=== PATIENT | male | born 2000 | race Two or more races ===

== ENCOUNTER 2024-05-09 18:56 | Emergency (ER) | payer BC, SELFPAY ==
[2024-05-09 19:45] VITALS: BP 125/79; PULSE 82; RESP 18; TEMP 37.1; O2SAT 98; BMI 29.1
--- NOTE | 2024-05-09 22:44 | PD.EDMALE ---
ED Male Genitalurinary RME/HPI General Chief complaint: Urogenital-Male Stated complaint: Bleeding from penis, pain during sex Time Seen by Provider: 05/09/24 20:11 Arrival date/time: 05/09/24 18:56 23M with no significant PMH presents to ED with penile discomfort, and possible bleeding after sexual intercourse. Limitations: no limitations Related Data Previous Rx's ?Medication ?Instructions ?Recorded amoxicillin 500 mg-potassium 1 tab PO TID #20 tabs 09/22/19 clavulanate 125 mg tablet (Augmentin) ibuprofen 800 mg tablet 600 mg (0.75 x 800 mg) PO TID #30 09/22/19 tabs Allergies Allergy/AdvReac Type Severity Reaction Status Date / Time No Known Allergies Allergy Mild NKA Uncoded 05/09/24 19:03 Review of Systems Review of Systems Systems Reviewed: All systems reviewed, normal except as documented Constitutional Constitutional: Reports system reviewed and no additional complaints, except as documented, Denies fever(s) and Denies headache(s) ENT Ears, Nose, Mouth, and Throat: Denies disequilibrium and Denies headache(s) Cardiovascular Cardiovascular: Reports system reviewed and no additional complaints, except as documented, Denies chest pain and Denies dyspnea Respiratory Respiratory: Reports system reviewed and no additional complaints, except as documented, Denies cough and Denies dyspnea Gastrointestinal Gastrointestinal: Reports system reviewed and no additional complaints, except as documented, Denies abdominal pain, Denies nausea and Denies vomiting Genitourinary Genitourinary: Reports as per HPI and Reports genital pain (discomfort) Neurologic Neurologic: Reports system reviewed and no additional complaints, except as documented, Denies confusion, Denies disequilibrium and Denies headache(s) Psychiatric Psychiatric: Denies confusion Past Medical History Past Medical History NEUROLOGIC: Negative Seizures CARDIAC: Negative Cardiac Disorders or Congestive Heart Failure RESPIRATORY: Negative Chronic Obstructive Pulmonary Disease (COPD) or Asthma GASTROINTESTINAL: Negative Gastrointestinal Disorders GENITOURINARY: Negative Genitourinary Disorders or Renal Disease MUSCULOSKELETAL: Negative Musculoskeletal Disorders ENDOCRINE: Negative Endocrine Disorders, Diabetes Mellitus Type 1 or Diabetes Mellitus Type 2 HEMATOLOGIC: Negative Sickle Cell Disease OTHER HISTORY: Negative Autoimmune Disease, Anesthesia Reactions, MRSA, Vancomycin-Resistant Enterococci or Clostridium Difficile Surgical History SURGICAL: Negative Ear Surgery, Nephrectomy or Joint Replacement Social History SMOKING STATUS: Current every day smoker ED Exam General Limitations: Present no limitations General appearance: Present alert and in no apparent distress Head Head exam: Present atraumatic Eye Eye exam: Present normal appearance, PERRL and EOMI ENT ENT exam: Present normal exam, normal oropharynx and mucous membranes moist Neck Neck exam: Present normal inspection, full ROM and trachea midline Chest Chest inspection: Present normal inspection and symmetric chest wall rise Respiratory Respiratory exam: Present normal lung sounds bilaterally Cardiovascular Cardiovascular exam: Present regular rate, normal rhythm and normal heart sounds Abdominal Exam Abdominal exam: Present soft and normal bowel sounds Extremities Exam Extremities exam: Present normal inspection and full ROM Back Exam Back exam: Present normal inspection and full ROM Neurological Exam Neurological exam: Present alert, oriented X3 and CN II-XII intact Psychiatric Psychiatric exam: Present normal affect and normal mood Skin Skin exam: Present warm, dry, intact and normal color Course Quality Measures none Vital Signs Vital signs: Vital Signs Temperature 98.7 F 05/09/24 19:45 Pulse Rate 82 05/09/24 19:45 Respiratory Rate 18 05/09/24 19:45 Blood Pressure 125/79 05/09/24 19:45 Pulse Oximetry (%) 98 05/09/24 19:45 Oxygen Delivery Method Room Air 05/09/24 19:45 O2 at 98% on RA and WNLs Urogenital - Male MDM Narrative MDM Narrative:: 23M with no significant PMH presents to ED with penile discomfort, and possible bleeding after sexual intercourse. Physical exam with metal bonding crib attendant reveals no obvious external skin wound. No swelling or tenderness. Shaft of penis intact. Patient is afebrile, calm, and alert. Patient urinated w/o issue. Quahogger given. Patient data External records reviewed:: [facility] previous records Clinical information provided by:: patient Social determinants that could affect healthcare access:: none Patient has the following chronic illnesses:: none How is presenting disease/condition affected by chronic disease/condition?: no chronic disease Evaluation data The following diagnostics were reviewed and interpreted by me:: other (specify) (none) Lab and/or radiology exams considered but not ordered:: not ordered Interpretation Summary: n/a Medications / Prescriptions Medications or Prescriptions considered but not ordered:: not ordered Medication administrations:: n/a Consultations Consultation(s) initiated? (list below): No Diagnosis Urogenital Male Differential Diagnosis: urinary tract infection, priapism, urethritis, epididymitis, genital herpes simplex, prostatitis, acute retention of urine, inguinal hernia and other (penile pain) Most likely diagnosis given after review of the tests above:: penile pain Admission Indicated Admission indicated?: not indicated Admission Request Was there a request for admission?: No Disposition Plan Disposition Plan: Discharge Discharge Attestation Discharge Attestation: The patient and all family members were given an opportunity to ask questions and understood the discharge instructions. Discharge instructions specifically effects, indications for sooner follow up or return to the emergency department, and the expected course of current diagnosis. Patient condition: Stable Discharge Plan Plan Patient Disposition: HOME (Self Care) Disposition Comment: Stable Prescriptions/Referrals Prescriptions/Med Rec: No Action ibuprofen 800 mg tablet 600 mg PO TID Qty: 30 0RF amoxicillin-pot clavulanate [Augmentin] 500-125 mg tablet 1 tab PO TID Qty: 20 0RF Problem List Clinical Impression: Pain, penile Patient/Caregiver Discharge Instructions Additional Instructions: Please follow-up with PCP within 24-48 hours and return immediately if symptoms worsen. Rest until symptoms are gone. Print Language: Macedonian Stand Alone Forms: Patient Portal Info Letter SOCORRO/MAHI Supervising Physician ZABRINA Supervising Physician: Dr. Ely
== END 2024-05-09 20:31 | disposition home or self-care (01) ==
LOC: SERX 20:23
PROVIDERS: Emergency Provider Emergency Medicine
DX: N48.89 Other specified disorders of penis (principal)
CPT/HCPCS: 99281